=== PATIENT | female | born 1940 | race Caucasian/White ===

== ENCOUNTER → 2021-04-16 19:02 | Outpatient (ROUT) | payer OTHER, SELFPAY ==
[2021-04-16 19:34] LABS: Aspartate Aminotransferase 26 IU/L (14-36); BUN Creatinine Ratio 33.8 (6-22); Blood Urea Nitrogen 24 mg/dL (7-17); Calcium 9.7 mg/dL (8.4-10.2); Carbon Dioxide 28 mmol/L (22-32); Chloride 103 mmol/L (98-107); Cholesterol 161 mg/dL (140-199); Estimated Glomerular Filt Rate > 60.0 mL/min (>60); Glucose 86 mg/dL (80-110); HDL Cholesterol 60 mg/dL (40-60); HEMOLYSIS 22 (0-50); LDL Cholesterol Calculated 79 mg/dL (<100); Potassium 4.5 mmol/L (3.4-5.1); Sodium 139 mmol/L (137-145); Triglycerides 108 mg/dL (35-150)
== END ==
PROVIDERS: PCP Internal Medicine; Visit Provider Internal Medicine
DX: I10 Essential (primary) hypertension (principal); E78.2 Mixed hyperlipidemia
CPT/HCPCS: 80048; 80061; 84450